=== PATIENT | female | born 1960 | race Hispanic/Latino ===

== ENCOUNTER 2020-08-31 09:19 | Emergency (ER) | payer BC ==
[~2020-08-31] VITALS: Ht 152.4 cm; Wt 65.3 kg
[2020-08-31 11:30] VITALS: BP 165/95
== END 2020-08-31 11:30 | disposition home or self-care (01) ==
LOC: ER 09:58
DX: G51.0 Bell's palsy (principal); I10 Essential (primary) hypertension; E11.9 Type 2 diabetes mellitus without complications; Z85.3 Personal history of malignant neoplasm of breast
CPT/HCPCS: 70450; 99283